=== PATIENT | male | born 1960 | race Caucasian/White ===

== ENCOUNTER 2025-03-08 10:41 | Emergency (ER) | payer OTHER | END 2025-03-08 12:00 | disposition home or self-care (01) | LOC: VM.ED 10:41 | DX: S93.422A Sprain of deltoid ligament of left ankle, initial encounter (principal); S86.912A Strain of unspecified muscle(s) and tendon(s) at lower leg level, left leg, initial encounter; E03.9 Hypothyroidism, unspecified; I10 Essential (primary) hypertension; Z79.890 Hormone replacement therapy; Z79.899 Other long term (current) drug therapy; W01.0XXA Fall on same level from slipping, tripping and stumbling without subsequent striking against object, initial encounter | CPT/HCPCS: 73562-LT; 73610-LT; 99283 ==